=== PATIENT | female | born 1935 | race Caucasian/White ===

== ENCOUNTER → 2017-03-06 | Outpatient (CLI) | payer MEDICARE, BC ==
--- NOTE | 2017-03-06 15:36 | XR ---
EXAMINATION TYPE: XR ankle complete RT DATE OF EXAM: 03/06/2017 CLINICAL HISTORY: Right ankle pain. TECHNIQUE: Frontal, lateral and oblique images of the right ankle are obtained. COMPARISON: None. FINDINGS: Osseous structures are demineralized. There is no acute fracture/dislocation evident in th e right ankle. The ankle mortise appears within normal limits. Small inferior calcaneal spur is seen . There is spurring distal Achilles tendon. Vascular calcification in the overlying soft tissue is pr esent. IMPRESSION: There is no acute fracture or dislocation in the right ankle.
== END | disposition home or self-care (01) ==
LOC: RADXRMAIN 15:19
PROVIDERS: ATTEND Family Medicine
DX: M25.571 Pain in right ankle and joints of right foot (principal)

== ENCOUNTER → 2018-04-03 | Outpatient (CLI) | payer MEDICARE, BC ==
--- NOTE | 2018-04-03 16:44 | BD ---
EXAMINATION TYPE: Axial Bone Density DATE OF EXAM: 04/03/2018 COMPARISON: 05.12.2014 CLINICAL HISTORY: 82 YR OLD FEMALE....ICD-10 CODE: M19.90 OSTEOARTHRITIS Height: 57.3 Weight: 138 FRAX RISK QUESTIONS: Family History (Parent hip fracture): NO FX Glucocorticoids (More than 3mos): YES, FOR RA, AND EYES (Ex: prednisone, prednisolone, methylprednisolone, dexamethasone, and hydrocortisone). Rheumatoid Arthritis: YES RISK FACTORS HISTORY OF: Family History of Osteoporosis: YES, HER MOTHER, NO FX OF HIP Active: NO, IN W/C Diet low in dairy products/other sources of calcium: A LITTLE LOW Postmenopausal woman: YES, AT 53 YRS OLD Lost more than 2 inches in height since high school: YES Frequent falls: IN W/C Poor Health: ELDERLY, FRAIL MEDICATIONS: Additional Medications: BP MEDS, HEART MEDS, KIDNEY MEDS, RA MEDS, HUMARA, STEROIDS FOR RA AND EYES , Additional History: KIDNEY DISEASE, RA, MACULAR DEG OF EYE, GLAUCOMA, EXAM MEASUREMENTS: Bone mineral densitometry was performed using the [employer] System. Bone mineral density as measured about the Lumbar spine is: ----- L1-L4(G/cm2): 0.890 T Score Values are as follows: ----- L1: -3.1 ----- L2: -2.3 ----- L3: -2.2 ----- L4: -2.3 ----- L1-L4: -2.4 Bone mineral density has: Decreased -11.5% since study of: 05.12.2014 Bone mineral density about the R hip (g/cm2): 0.608 Bone mineral density about the L hip (g/cm2): 0.591 T Score values are as follows: -----R Neck: -3.0 -----L Neck: -3.2 -----R Total: -3.2 -----L Total: -3.3 Bone mineral density has: Decreased -18.5% since study of: 05.12.2014 FRAX%s: THERE IS A 56.5% CHANCE OF A MAJOR OSTEOPOROTIC FX AND A 31.0% FOR A HIP FX.....PROBABILIT Y OF FX IN 10 YRS TIME IMPRESSION: Osteoporosis (T Score less than -2.5). There is increased fracture risk and therapy is usually indicated based on age. Re-Screen 1-2 years. NOTE: T-SCORE=SD OF THE YOUNG ADULT MEAN.
== END | disposition home or self-care (01) ==
LOC: RADBDWWP 08:29
PROVIDERS: ATTEND Family Medicine
DX: M81.0 Age-related osteoporosis without current pathological fracture (principal); M19.90 Unspecified osteoarthritis, unspecified site
CPT/HCPCS: 77080

== ENCOUNTER 2018-12-06 14:14 | Emergency (ER) | payer MEDICARE, BC ==
--- NOTE | 2018-12-06 14:55 | ED ---
Lower Extremity Injury HPI - General Chief Complaint: Extremity Injury, Lower Stated Complaint: Ankle pain Time Seen by Provider: 12/06/18 14:20 Source: patient, family, RN notes reviewed Mode of arrival: wheelchair Limitations: no limitations - History of Present Illness Initial Comments: 83-year-old female presents emergency Department with chief complaint of right ankle pain. She injured it approximately 2 weeks ago and has progressively worsened with no improvement with rest. Patient is swollen, painful on the lateral aspect of her ankle. She denies paresthesias. She does occasionally have pain that radiates up into her knee. Patient states that she has not been evaluated for this. Patient offers no other complaints. - Related Data Home Medications Medication Instructions Recorded Confirmed Aspirin 1 tab PO DAILY 06/12/17 06/20/17 Calcitriol [Rocaltrol] 1 cap PO WEEKLY 06/12/17 06/20/17 Docusate [Colace] 1 tab PO BID 06/12/17 06/20/17 Folic Acid 1 mg PO DAILY 06/12/17 06/20/17 Furosemide [Lasix] 40 mg PO DAILY 06/12/17 06/20/17 Hydroxychloroquine Sulfate 200 mg PO BID 06/12/17 06/20/17 [Plaquenil] Isosorbide Mononitrate ER [Imdur] 30 mg PO DAILY 06/12/17 06/20/17 Metoprolol Tartrate [Lopressor] 50 mg PO BID 06/12/17 06/20/17 Pravastatin Sodium [Pravachol] 40 mg PO DAILY 06/12/17 06/20/17 Rivaroxaban [Xarelto] 20 mg PO DAILY 06/12/17 06/20/17 Spironolactone [Aldactone] 25 mg PO DAILY 06/12/17 06/20/17 Vit C/E/Zn/Coppr/Lutein/Zeaxan 1 tab PO BID 06/12/17 06/20/17 [Preservision Areds 2 Softgel] oxyCODONE-APAP 5-325MG [Percocet 1 tab PO AC-TID PRN 06/12/17 06/20/17 5-325 mg] rOPINIRole HCL [Requip] 0.5 mg PO DAILY 06/12/17 06/20/17 Allergies Allergy/AdvReac Type Severity Reaction Status Date / Time Sulfa (Sulfonamide Allergy Unknown Verified 12/06/18 14:19 Antibiotics) Review of Systems ROS Statement: Those systems with pertinent positive or pertinent negative responses have been documented in the HPI. ROS Other: All systems not noted in ROS Statement are negative. Past Medical History Past Medical History: Atrial Fibrillation, Hyperlipidemia, Hypertension, Osteoarthritis (OA) Additional Past Medical History / Comment(s): chf,sjogrens,ckd,glucoma,glucoma History of Any Multi-Drug Resistant Organisms: None Reported Past Surgical History: Pacemaker Additional Past Surgical History / Comment(s): kidney biopsy,cataracts Past Anesthesia/Blood Transfusion Reactions: No Reported Reaction Type of Cardiac Device: Permanent Pacemaker Device Placement Date:: 03/2016 generator change Past Psychological History: Anxiety Smoking Status: Never smoker Past Alcohol Use History: None Reported Past Drug Use History: None Reported General Exam Limitations: no limitations General appearance: alert, in no apparent distress Head exam: Present: atraumatic, normocephalic, normal inspection Eye exam: Present: normal appearance, PERRL, EOMI. Absent: scleral icterus, conjunctival injection, periorbital swelling ENT exam: Present: normal exam, normal oropharynx, mucous membranes moist, TM's normal bilaterally Neck exam: Present: normal inspection, full ROM. Absent: tenderness, meningismus, lymphadenopathy Respiratory exam: Present: normal lung sounds bilaterally. Absent: respiratory distress, wheezes, rales, rhonchi, stridor Cardiovascular Exam: Present: regular rate, normal rhythm, normal heart sounds. Absent: systolic murmur, diastolic murmur, rubs, gallop, clicks Extremities exam: Present: other (Right ankle there is tenderness to lateral malleoli region, mild ecchymosis and swelling noted, neurovascular intact there is no calf tenderness full range of motion the right ankle and knee.) Neurological exam: Present: alert, oriented X3, CN II-XII intact Skin exam: Present: warm, dry, intact, normal color. Absent: rash Course Vital Signs 12/06/18 14:16 Temperature 97.6 F Pulse Rate 67 Respiratory 20 Rate Blood Pressure 135/52 O2 Sat by Pulse 98 Oximetry Medical Decision Making - Medical Decision Making 83-year-old female sent for right ankle pain and swelling. Patient had x-ray which shows some osseous changes but no acute fracture. Patient ultrasound rule out DVT which is negative. Patient will follow-up with Dr. Mims for further evaluation possible MRI. Disposition Clinical Impression: Right ankle sprain Disposition: HOME SELF-CARE Condition: Stable Instructions (If sedation given, give patient instructions): Ankle Sprain (ED) Additional Instructions: Please return to the Emergency Department if symptoms worsen or any other arminda rns. Is patient prescribed a controlled substance at d/c from ED?: No Referrals: Estevan Heard DO [Primary Care Provider] - 1-2 days Bonifacio Mims MD [Medical Doctor] - 1-2 days Time of Disposition: 16:33
--- NOTE | 2018-12-06 15:23 | XR ---
EXAMINATION TYPE: XR ankle complete RT DATE OF EXAM: 12/06/2018 CLINICAL HISTORY: Lateral right ankle pain for 2 weeks with no known injury TECHNIQUE: Frontal, lateral and oblique images of the right ankle are obtained. COMPARISON: None. FINDINGS: There is diffuse osseous demineralization seen. There is no acute fracture/dislocation kavita dent in the right ankle. There is sclerosis of the medial talar dome The ankle mortise remains align ed. Mild soft tissue swelling is seen distal to the medial malleolus in the region of the deltoid lig ament. Small vessel atherosclerosis is seen and small plantar enthesophyte/heel spur. IMPRESSION: There is no acute fracture or dislocation in the right ankle. Sclerosis of the medial ta lar dome that could be on the basis of hindfoot varus, osseous contusion, or OCD/avascular necrosis. MRI could further evaluate for the bone marrow. Soft tissue swelling is also seen over the deltoid li gament that could also be evaluated with MRI.
--- NOTE | 2018-12-06 16:29 | US ---
EXAMINATION TYPE: US venous doppler duplex LE RT DATE OF EXAM: 12/06/2018 4:24 PM COMPARISON: NONE CLINICAL HISTORY: Pain. Right ankle pain SIDE PERFORMED: right TECHNIQUE: The lower extremity deep venous system is examined utilizing real time linear array sonog burke with graded compression, doppler sonography and color-flow sonography. VESSELS IMAGED: External Iliac Vein (EIV) Common Femoral Vein Deep Femoral Vein Greater Saphenous Vein * Femoral Vein Popliteal Vein Small Saphenous Vein * Proximal Calf Veins (* superficial vessels) Right Leg: No evidence of DVT IMPRESSION: 1. Right lower extremity ultrasound negative for deep venous thrombosis.
[2018-12-06 16:47] VITALS: BP 134/55; PULSE 58; RESP 16; TEMP 97.8
== END 2018-12-06 16:47 | disposition home or self-care (01) ==
LOC: EC 14:14
DX: S93.401A Sprain of unspecified ligament of right ankle, initial encounter (principal); I48.91 Unspecified atrial fibrillation; E78.5 Hyperlipidemia, unspecified; I10 Essential (primary) hypertension; H40.9 Unspecified glaucoma; F41.9 Anxiety disorder, unspecified; Z79.82 Long term (current) use of aspirin; Z79.01 Long term (current) use of anticoagulants; Z79.899 Other long term (current) drug therapy; Z88.2 Allergy status to sulfonamides; Z95.0 Presence of cardiac pacemaker; X50.1XXA Overexertion from prolonged static or awkward postures, initial encounter; Y92.89 Other specified places as the place of occurrence of the external cause
CPT/HCPCS: 99284

== ENCOUNTER 2019-05-30 11:41 | Emergency (ER) | payer MEDICARE, BC ==
--- NOTE | 2019-05-30 12:43 | ED ---
Fall HPI - General Chief Complaint: Fall Stated Complaint: Fall, back pain Time Seen by Provider: 05/30/19 12:14 Source: patient, family Mode of arrival: ambulatory - History of Present Illness Initial Comments: Patient is an 83-year-old female presenting to emergency Department with a chief complaint of a fall. Patient reports incident occurred about 3 days ago when she tripped and fell to the right side hitting her nightstand. Patient reports pain whenever she lays down the right side of her hip and her abdomen. Patient denies any head injury, loss of consciousness and nausea or vomiting. Patient reports the pain is alleviated whenever she is standing or sitting position. Patient does take Xeralto. Patient denies any neck pain, chest pain, shortness of breath or headaches. - Related Data Home Medications Medication Instructions Recorded Confirmed Aspirin 1 tab PO DAILY 06/12/17 05/30/19 Folic Acid 1 mg PO HS 06/12/17 05/30/19 Furosemide [Lasix] 40 mg PO DAILY 06/12/17 05/30/19 Isosorbide Mononitrate ER [Imdur] 30 mg PO DAILY 06/12/17 05/30/19 Metoprolol Tartrate [Lopressor] 50 mg PO BID 06/12/17 05/30/19 Pravastatin Sodium [Pravachol] 40 mg PO HS 06/12/17 05/30/19 Rivaroxaban [Xarelto] 20 mg PO DAILY 06/12/17 05/30/19 Spironolactone [Aldactone] 25 mg PO DAILY 06/12/17 05/30/19 Vit C/E/Zn/Coppr/Lutein/Zeaxan 1 tab PO BID 06/12/17 05/30/19 [Preservision Areds 2 Softgel] Brimonidine Tartrate [Alphagan P 1 drops RIGHT EYE BID 05/30/19 05/30/19 0.2% Ophth Soln] Cranberry Fruit Extract [Cranberry] 500 mg PO BID 05/30/19 05/30/19 Dorzolamide-Timol 2.23%/0.68% 1 drop BOTH EYES BID 05/30/19 05/30/19 [Cosopt] Allergies Allergy/AdvReac Type Severity Reaction Status Date / Time Sulfa (Sulfonamide Allergy Unknown Verified 05/30/19 12:26 Antibiotics) Review of Systems ROS Statement: Those systems with pertinent positive or pertinent negative responses have been documented in the HPI. ROS Other: All systems not noted in ROS Statement are negative. Past Medical History Past Medical History: Atrial Fibrillation, Hyperlipidemia, Hypertension, Osteoarthritis (OA) Additional Past Medical History / Comment(s): chf,sjogrens,ckd,glucoma,glucoma History of Any Multi-Drug Resistant Organisms: None Reported Past Surgical History: Hysterectomy, Pacemaker Additional Past Surgical History / Comment(s): kidney biopsy,cataracts. PARTIAL HYSTERECTOMY. Past Anesthesia/Blood Transfusion Reactions: No Reported Reaction Type of Cardiac Device: Permanent Pacemaker Device Placement Date:: 03/2016 generator change Past Psychological History: Anxiety Smoking Status: Never smoker Past Alcohol Use History: None Reported Past Drug Use History: None Reported General Exam Limitations: no limitations General appearance: alert, in no apparent distress Head exam: Present: atraumatic, normocephalic, normal inspection Eye exam: Present: normal appearance, PERRL, EOMI Pupils: Present: normal accommodation ENT exam: Present: normal exam, normal oropharynx (No oral trauma.), mucous membranes moist, TM's normal bilaterally, normal external ear exam Neck exam: Present: normal inspection, full ROM. Absent: tenderness, lymphadenopathy Respiratory exam: Present: normal lung sounds bilaterally Cardiovascular Exam: Present: regular rate, normal rhythm, systolic murmur (Aortic stenosis) GI/Abdominal exam: Present: soft, tenderness (Tenderness along the upper abdomen.), normal bowel sounds. Absent: guarding Extremities exam: Present: normal inspection, full ROM, normal capillary refill. Absent: tenderness Back exam: Present: normal inspection (Ecchymosis on the right hip/flank region), full ROM, tenderness (Right lower back tenderness. Right flank pain) Neurological exam: Present: alert, oriented X3 Psychiatric exam: Present: normal affect, normal mood Skin exam: Present: warm, intact, normal color Course Vital Signs 05/30/19 05/30/19 05/30/19 12:00 14:02 15:15 Temperature 97.5 F L 98.0 F Pulse Rate 55 L 63 81 Respiratory 20 18 20 Rate Blood Pressure 102/50 129/58 141/68 O2 Sat by Pulse 99 98 97 Oximetry Medical Decision Making - Medical Decision Making Patient is an 83-year-old female presenting to emergency Department with a chief complaint of fall. Patient fell 2 days ago and hit the nightstand on the way down. Patient has a blood thinners. CT of the brain is negative for acute fractures, dislocations, midline shift or hemorrhage. However does indicate degenerative changes. CT of abdomen and pelvis is indicative of a hiatal hernia and cholelithiasis. Although I don't suspect this to be the cause of the pain that she is having after the fall. CT of the abdomen was more to rule out any hepatic ruptures. Chest is also unremarkable. Information relayed to the patient. She really has CKG and has poor kidney function which is currently at her baseline. She will be discharged and advised to follow with primary care. Strict return parameters were thoroughly discussed with patient was understanding and agreeable. Case discussed physician. - Lab Data Result diagrams: 05/30/19 12:50 05/30/19 12:50 Lab Results 05/30/19 05/30/19 05/30/19 Range/Units 12:50 12:50 12:50 WBC 7.8 (3.8-10.6) k/uL RBC 3.03 L (3.80-5.40) m/uL Hgb 10.4 L (11.4-16.0) gm/dL Hct 33.0 L (34.0-46.0) % MCV 108.9 H (80.0-100.0) fL MCH 34.4 (25.0-35.0) pg MCHC 31.6 (31.0-37.0) g/dL RDW 16.2 H (11.5-15.5) % Plt Count 159 (150-450) k/uL Hypochromasia Moderate Anisocytosis Slight Macrocytosis Marked A PT 13.0 H (9.0-12.0) sec INR 1.3 H (<1.2) APTT 33.5 H (22.0-30.0) sec Sodium 138 (137-145) mmol/L Potassium 5.4 H (3.5-5.1) mmol/L Chloride 109 H (98-107) mmol/L Carbon Dioxide 20 L (22-30) mmol/L Anion Gap 9 mmol/L BUN 76 H (7-17) mg/dL Creatinine 1.90 H (0.52-1.04) mg/dL Est GFR (CKD-EPI)AfAm 28 (>60 ml/min/1.73 sqM) Est GFR (CKD-EPI)NonAf 24 (>60 ml/min/1.73 sqM) Glucose 187 H (74-99) mg/dL Calcium 10.4 H (8.4-10.2) mg/dL Total Bilirubin 0.4 (0.2-1.3) mg/dL AST 46 H (14-36) U/L ALT 23 (9-52) U/L Alkaline Phosphatase 64 (38-126) U/L Total Protein 6.6 (6.3-8.2) g/dL Albumin 3.5 (3.5-5.0) g/dL Disposition Clinical Impression: Fall, Cholelithiasis, Hiatal hernia Disposition: HOME SELF-CARE Condition: Stable Instructions (If sedation given, give patient instructions): Fall Prevention for Older Adults (ED) Additional Instructions: Please follow up with primary care. Please return to emergency department if symptoms worsen. Is patient prescribed a controlled substance at d/c from ED?: No Referrals: Estevan Heard DO [Primary Care Provider] - 1-2 days Time of Disposition: 15:07
[2019-05-30 13:07] LABS: Anisocytosis Slight; HGB 10.4 gm/dL (11.4-16.0); Hypochromasia Moderate; MCH 34.4 pg (25.0-35.0); MCHC 31.6 g/dL (31.0-37.0); MCV 108.9 fL (80.0-100.0); Macrocytosis Marked; Mean Platelet Volume 7.6; Platelet Count 159 k/uL (150-450); RBC 3.03 m/uL (3.80-5.40); RDW 16.2 % (11.5-15.5); WBC 7.8 k/uL (3.8-10.6)
[2019-05-30 13:19] LABS: INR 1.3 (<1.2); Partial Thromboplastin Time 33.5 sec (22.0-30.0)
[2019-05-30 13:28] LABS: Albumin 3.5 g/dL (3.5-5.0); Calcium 10.4 mg/dL (8.4-10.2); Potassium 5.4 mmol/L (3.5-5.1); Total Bilirubin 0.4 mg/dL (0.2-1.3); Total Protein 6.6 g/dL (6.3-8.2)
--- NOTE | 2019-05-30 13:38 | XR ---
EXAMINATION TYPE: XR chest 2V DATE OF EXAM: 05/30/2019 COMPARISON: 08/27/2009 HISTORY: Shortness of breath TECHNIQUE: Frontal and lateral views of the chest are obtained. FINDINGS: Scattered senescent parenchymal changes noted. Hyperinflation compatible with COPD. No evidence for infiltrate. No evidence for atelectasis. Heart size is stable. Mediastinal structures are stable and grossly unremarkable. No evidence for hilar prominence. Degenerative changes dorsal spine. IMPRESSION: 1. No evidence for acute pulmonary disease.
--- NOTE | 2019-05-30 14:16 | CT ---
EXAMINATION TYPE: CT brain wo con DATE OF EXAM: 05/30/2019 COMPARISON: 08/21/2009 INDICATION: Fall DLP: 1076.4 mGycm, Automated exposure control for dose reduction was used. CONTRAST: None CT of the brain is performed utilizing 3 mm thick sections through the posterior fossa and 3 mm thick sections through the remaining calvarium. Study is performed within 24 hours of arrival to the hosp ital. No abnormal hyperdensity is present to suggest an acute intracranial hemorrhage. No mass lesion is evident. No acute infarcts are evident. Ventricular white matter hypodensity is present, likely on the basis o f chronic white matter ischemic changes. Ventricles and sulci are mildly prominent for the patient age. Paranasal sinuses and mastoid air cells within the [id number] are clear. IMPRESSIONS: 1. Mild periventricular white matter chronic appearing ischemic changes with age-related atrophy.
--- NOTE | 2019-05-30 14:23 | CT ---
EXAMINATION TYPE: CT abdomen pelvis wo con DATE OF EXAM: 05/30/2019 COMPARISON: None INDICATION: Fall, back pain DLP: 442.5 mGycm, Automated exposure control for dose reduction was used. CONTRAST: 0 mL of Isovue 300. Study performed without Oral Contrast TECHNIQUE: Axial images were obtained from above the diaphragm to the pubic rami in the axial plane a t 5 mm thick sections. Reconstructed images are reviewed on the computer in the coronal plane. FINDINGS: Limited CT sections are obtained the lung bases. The lung bases are clear. Coronary artery calcific ations present. Moderate size hiatal hernia is present. CT ABDOMEN: Liver: Normal Spleen: Normal Pancreas: Normal Adrenal glands: The adrenal glands are normal. Gallbladder: Gallstones are present. Kidneys: No masses are evident. No hydronephrosis is present. No cysts are present. Delayed images were obtained through the kidneys, which remain unremarkable. Aorta: Vascular calcification is within the aorta. Inferior vena cava: Normal. CT PELVIS: Loops of bowel within the abdomen and pelvis are normal. There are loops of bowel which are incom pletely distended or lack oral contrast limiting their evaluation. Appendix: Normal as visualized. Urinary bladder: Normal. Genitourinary structures: Uterus is not identified. Adnexal regions appear normal. Osseous structures: No suspicious lytic or sclerotic lesions. Vertebral body heights are preserved. S ome vacuum disc phenomenon is present. Some disc space narrowing is present diffusely. No acute abnor mality is evident. IMPRESSIONS: 1. Cholelithiasis. 2. Hiatal hernia.
[2019-05-30 15:29] VITALS: BP 141/68; PULSE 81; RESP 20; TEMP 98
== END 2019-05-30 15:15 | disposition home or self-care (01) ==
LOC: EC 11:41
DX: K80.20 Calculus of gallbladder without cholecystitis without obstruction (principal); K44.9 Diaphragmatic hernia without obstruction or gangrene; S39.92XA Unspecified injury of lower back, initial encounter; S70.01XA Contusion of right hip, initial encounter; M54.9 Dorsalgia, unspecified; I48.91 Unspecified atrial fibrillation; E78.5 Hyperlipidemia, unspecified; M19.90 Unspecified osteoarthritis, unspecified site; I13.0 Hypertensive heart and chronic kidney disease with heart failure and stage 1 through stage 4 chronic kidney disease, or unspecified chronic kidney disease; N18.9 Chronic kidney disease, unspecified; I50.9 Heart failure, unspecified; H40.9 Unspecified glaucoma; I35.0 Nonrheumatic aortic (valve) stenosis; F41.9 Anxiety disorder, unspecified; Z79.01 Long term (current) use of anticoagulants; Z88.2 Allergy status to sulfonamides; Z79.82 Long term (current) use of aspirin; Z79.899 Other long term (current) drug therapy; W01.198A Fall on same level from slipping, tripping and stumbling with subsequent striking against other object, initial encounter
CPT/HCPCS: 36415; 70450; 71046; 74176; 80053; 85027; 85610; 85730; 99284